=== PATIENT | female | born 1990 | race Caucasian/White ===

== ENCOUNTER 2016-03-26 15:44 | Inpatient (IN) | payer OTHER ==
[~2016-03-26] VITALS: Ht 170.2 cm; Wt 90.1 kg
[2016-04-23] VITALS (34 sets, daily range): BP systolic 101–137; BP diastolic 61–85; PULSE 77–121; TEMP 97.4–98.9
[2016-04-23] MEDS ORDERED: PRENATAL (06:51)
[2016-04-23] MEDS ORDERED: COLACE 100100 MG/CAP PO (06:51)
[2016-04-23] MEDS ORDERED: [UNRECOGNIZED DRUG - OTHER] PO (07:32)
[2016-04-23] MEDS ORDERED: OSCAL 500 TAB500 MG (07:33)
[2016-04-23] MEDS ORDERED: ZANTAC 7575 MG PO (07:33)
[2016-04-23] MEDS ORDERED: IRON325 MG PO (07:34)
[2016-04-23 08:12] LABS: BASO % 0.4 % (0.0-2.0); EOS # 0.1 (0.0-0.7); EOS % 1.2 % (0-4.0); GRAN # 6.2 (1.4-6.5); GRAN % 67.1 % (42.2-75.2); HEMOGLOBIN 12.7 g/dl (12.5-16.0); LYMPH # 1.9 (1.2-3.4); LYMPH % 20.3 % (20.0-51.0); MEAN CELL VOLUME 95 fl (80.0-100.0); MEAN CORPUSCULAR HEMOGLOBIN 33 pg (27.0-31.0); MEAN CORPUSCULAR HGB CONC 35 g/dl (33.0-37.0); MEAN PLATELET VOLUME 11.4 fl (7.4-10.4); MONO # 0.9 (0.1-0.6); MONO % 9.8 % (1.7-9.3); PLATELET COUNT 187 K/mm3 (130-400); RED BLOOD COUNT 3.86 M/mm3 (4.10-5.30); REDCELL DISTRIBUTION WIDTH-CV 13.6 % (11.5-14.5); WHITE BLOOD COUNT 9.2 K/mm3 (4.8-10.8)
[2016-04-23 08:13] LABS: HEMATOCRIT 36.6 % (37.0-47.0)
[2016-04-24 00:30] VITALS: BP 109/68; PULSE 87; TEMP 97.9
[2016-04-24 05:30] VITALS: BP 110/79; PULSE 85; TEMP 97.8
[2016-04-24 07:00] VITALS: BP 106/79; PULSE 84; TEMP 98.1
[2016-04-24] MEDS ORDERED: IBU800 M1 PO (08:58)
[2016-04-24] MEDS ORDERED: PERCOCET 325 MG1 TA2 PO (08:58)
[2016-04-24 15:44] VITALS: BP 114/68; PULSE 92; TEMP 97.8
[2016-04-24 21:00] VITALS: BP 102/75; PULSE 83; TEMP 98.2
[2016-04-25 09:20] VITALS: BP 98/73; PULSE 104; TEMP 98.2
== END 2016-04-25 13:30 | disposition home or self-care (01) | DRG 775 ==
LOC: EDSTATUS 04-13 08:33 → LDRO 04-13 13:23 → OB 04-23 07:06 → LDR 04-23 07:06 → OB 04-23 20:05 → LDRO 05-07 15:44
PROVIDERS: Obstetrics & Gynecology
PROC: 10E0XZZ Delivery of Products of Conception, External Approach (ICD-10-PCS; principal; 2016-04-23)
PROC: 0HQ9XZZ Repair Perineum Skin, External Approach (ICD-10-PCS; 2016-04-23)
PROC: 3E033VJ Introduction of Other Hormone into Peripheral Vein, Percutaneous Approach (ICD-10-PCS; 2016-04-23)
DX: O70.0 First degree perineal laceration during delivery (principal); O09.293 Supervision of pregnancy with other poor reproductive or obstetric history, third trimester; Z3A.38 38 weeks gestation of pregnancy; Z37.0 Single live birth
CPT/HCPCS: J2210; J2590; J7120

== ENCOUNTER 2018-03-02 11:52 | Outpatient (CLI) | payer OTHER ==
[~2018-03-02] VITALS: Ht 170.2 cm; Wt 85.0 kg
[2018-03-02] VITALS (8 sets, daily range): BP systolic 109–117; BP diastolic 65–77; PULSE 108–136; TEMP 98.3–99.3
[~2018-03-02 11:52] MED LIST: COLACE 100100 MG/CAP PO; IBU800 M1 PO; IRON325 MG PO; OSCAL 500 TAB500 MG; PERCOCET 325 MG1 TA2 PO; PRENATAL; ZANTAC 7575 MG PO; [UNRECOGNIZED DRUG - OTHER] PO
[2018-03-02 12:27] LABS: HEMATOCRIT 37.8 % (37.0-47.0); HEMOGLOBIN 12.6 g/dl (12.5-16.0); MEAN CELL VOLUME 99 fl (80.0-100.0); MEAN CORPUSCULAR HEMOGLOBIN 33 pg (27.0-31.0); MEAN CORPUSCULAR HGB CONC 33 g/dl (33.0-37.0); PLATELET COUNT 192 K/mm3 (130-400); RED BLOOD COUNT 3.81 M/mm3 (4.10-5.30); REDCELL DISTRIBUTION WIDTH-CV 13.6 % (11.5-14.5)
[2018-03-02] MEDS ORDERED: MAGNESIUM200 MG PO (12:27)
[2018-03-02 12:30] LABS: MUCOUS Present /lpf; PH 7 (5-8); URINE APPEARANCE Hazy; URINE BACTERIA None Seen /hpf; URINE BILIRUBIN Negative (NEGATIVE); URINE BLOOD Negative (NEGATIVE); URINE COLOR Yellow; URINE GLUCOSE Negative (NEGATIVE); URINE KETONE 2+ (NEGATIVE); URINE LEUKOCYTE ESTERASE Negative (NEGATIVE); URINE NITRATE Negative (NEGATIVE); URINE PROTEIN(semi-quant) 1+ (NEGATIVE); URINE RBC 0-2 /hpf; URINE UROBILINOGEN Negative (NEGATIVE)
[2018-03-02 12:39] LABS: ALBUMIN 3.6 gm/dL (3.5-5.0); BILIRUBIN,TOTAL 0.8 mg/dL (0.0-1.0); CALCIUM 8.5 mg/dL (8.4-10.2); CREATININE, serum 0.49 mg/dL (0.52-1.25); POTASSIUM 3.9 mmol/L (3.4-5.0); TOTAL PROTEIN 6.8 gm/dL (6.4-8.2)
[2018-03-02 12:40] LABS: COLLECTION METHOD CLEAN CATCH
[2018-03-02 12:42] LABS: BAND 23 % (0-10); LYMPHOCYTE 2 % (20.0-51.0); METAMYELOCYTE 2 % (0-0); NEUTROPHILS 72 % (42.0-75.2); PLATELET ESTIMATE NORMAL (NORMAL)
== END 2018-03-02 15:50 | disposition home or self-care (01) ==
LOC: LDRO 11:52 → LDR 11:55 → LDRO 15:50
PROVIDERS: Obstetrics & Gynecology
DX: O26.893 Other specified pregnancy related conditions, third trimester (principal); R11.2 Nausea with vomiting, unspecified; R19.7 Diarrhea, unspecified; Z3A.37 37 weeks gestation of pregnancy
CPT/HCPCS: OP; J2405; J7120

== ENCOUNTER 2018-03-06 03:56 | Inpatient (IN) | payer OTHER ==
[2018-03-06] VITALS (26 sets, daily range): BP systolic 106–156; BP diastolic 62–90; PULSE 61–102; TEMP 97.7–98.3
[~2018-03-06] VITALS: Ht 170.2 cm; Wt 83.6 kg
[~2018-03-06 03:56] MED LIST changes: +MAGNESIUM200 MG PO
[2018-03-06 05:12] LABS: BASO % 0.3 % (0.0-2.0); EOS % 0.7 % (0-4.0); GRAN # 3.4 (1.4-6.5); GRAN % 58.2 % (42.2-75.2); HEMOGLOBIN 11.5 g/dl (12.5-16.0); LYMPH # 1.8 (1.2-3.4); LYMPH % 30.1 % (20.0-51.0); MEAN CELL VOLUME 97 fl (80.0-100.0); MEAN CORPUSCULAR HEMOGLOBIN 33 pg (27.0-31.0); MEAN CORPUSCULAR HGB CONC 34 g/dl (33.0-37.0); MEAN PLATELET VOLUME 10.9 fl (7.4-10.4); MONO # 0.6 (0.1-0.6); MONO % 10.2 % (1.7-9.3); PLATELET COUNT 196 K/mm3 (130-400); RED BLOOD COUNT 3.46 M/mm3 (4.10-5.30); REDCELL DISTRIBUTION WIDTH-CV 13.5 % (11.5-14.5)
[2018-03-06 05:16] LABS: HEMATOCRIT 33.4 % (37.0-47.0)
[2018-03-07 01:54] VITALS: BP 103/69; PULSE 69; TEMP 97.6
[2018-03-07 05:12] VITALS: BP 106/69; PULSE 77; TEMP 97.9
[2018-03-07 09:30] VITALS: BP 108/67; PULSE 85; TEMP 98.2
== END 2018-03-07 15:15 | disposition home or self-care (01) | DRG 807 ==
LOC: LDRO 03:56 → LDR 04:27 → OB 04:27
PROVIDERS: Student in an Organized Health Care Education/Training Program
PROC: 10E0XZZ Delivery of Products of Conception, External Approach (ICD-10-PCS; principal; 2018-03-06)
PROC: 0HQ9XZZ Repair Perineum Skin, External Approach (ICD-10-PCS; 2018-03-06)
DX: O62.1 Secondary uterine inertia (principal); Z37.0 Single live birth; Z3A.38 38 weeks gestation of pregnancy; O70.0 First degree perineal laceration during delivery
CPT/HCPCS: J2590; J7120

== ENCOUNTER 2018-03-21 23:24 | Emergency (ER) | payer OTHER ==
[~2018-03-21] VITALS: Ht 167.6 cm; Wt 72.7 kg
[2018-03-21] MEDS ORDERED: MAGNESIUM200 MG PO (23:43)
[2018-03-21 23:47] LABS: COLLECTION METHOD CLEAN CATCH
[2018-03-22 00:43] LABS: AMORPHOUS CRYSTAL Present /uL; BUDDING YEAST Present /hpf; MUCOUS Present /lpf; PH 6 (5-8); SQUAMOUS EPITHELIAL 0-2 /hpf; URINE APPEARANCE Cloudy; URINE BACTERIA None Seen /hpf; URINE BILIRUBIN Negative (NEGATIVE); URINE BLOOD 2+ (NEGATIVE); URINE COLOR Yellow; URINE GLUCOSE Negative (NEGATIVE); URINE KETONE Negative (NEGATIVE); URINE LEUKOCYTE ESTERASE 3+ (NEGATIVE); URINE NITRATE Positive (NEGATIVE); URINE PROTEIN(semi-quant) 3+ (NEGATIVE); URINE RBC >50 /hpf; URINE UROBILINOGEN Negative (NEGATIVE); URINE WBC >50 /hpf
[2018-03-22] MEDS ORDERED: OMNICEF 300MG300 MG PO (01:08)
[2018-03-22 01:25] LABS: BASO # 0.1 (0.0-0.2); BASO % 0.5 % (0.0-2.0); EOS # 0.1 (0.0-0.7); EOS % 0.7 % (0-4.0); GRAN # 11.9 (1.4-6.5); GRAN % 78.3 % (42.2-75.2); HEMATOCRIT 39.6 % (37.0-47.0); LYMPH # 1.9 (1.2-3.4); LYMPH % 12.2 % (20.0-51.0); MEAN CELL VOLUME 99 fl (80.0-100.0); MEAN CORPUSCULAR HEMOGLOBIN 32 pg (27.0-31.0); MEAN CORPUSCULAR HGB CONC 33 g/dl (33.0-37.0); MEAN PLATELET VOLUME 10.2 fl (7.4-10.4); MONO # 1.2 (0.1-0.6); MONO % 7.8 % (1.7-9.3); PLATELET COUNT 316 K/mm3 (130-400); RED BLOOD COUNT 4.01 M/mm3 (4.10-5.30); REDCELL DISTRIBUTION WIDTH-CV 12.6 % (11.5-14.5)
[2018-03-22 01:36] LABS: ALBUMIN 4.1 gm/dL (3.5-5.0); BILIRUBIN,TOTAL 0.3 mg/dL (0.0-1.0); CALCIUM 9.1 mg/dL (8.4-10.2); CREATININE, serum 0.77 mg/dL (0.52-1.25); TOTAL PROTEIN 7.5 gm/dL (6.4-8.2)
[2018-03-22 02:57] VITALS: BP 106/69; PULSE 92; TEMP 98.2
== END 2018-03-22 03:31 | disposition home or self-care (01) ==
LOC: COL.ER 23:24
PROVIDERS: Emergency Medicine
DX: K59.00 Constipation, unspecified (principal); N12 Tubulo-interstitial nephritis, not specified as acute or chronic; N13.30 Unspecified hydronephrosis
CPT/HCPCS: J0696; J1885; J7030; Q9967

== ENCOUNTER → 2019-02-18 | Outpatient (CLI) | payer OTHER ==
[~2019-02-18] MED LIST changes: +OMNICEF 300MG300 MG PO
== END | disposition home or self-care (01) ==
LOC: COL.RAD 12:55
DX: R10.9 Unspecified abdominal pain (principal)

== ENCOUNTER → 2019-07-14 | Outpatient (CLI) | payer OTHER ==
[2019-07-14 08:03] LABS: ALBUMIN 4.7 gm/dL (3.5-5.0); BILIRUBIN,TOTAL 0.4 mg/dL (0.0-1.0); CALCIUM 9.3 mg/dL (8.4-10.2); CHOLESTEROL RISK RATIO 3.3; CREATININE, serum 0.65 (0.52-1.25); POTASSIUM 3.6 mmol/L (3.4-5.0); TOTAL PROTEIN 7.9 gm/dL (6.4-8.2)
[2019-07-14 08:05] LABS: HEMATOCRIT 38.6 % (37.0-47.0); HEMOGLOBIN 13.1 g/dl (12.5-16.0); MEAN CELL VOLUME 93 fl (80.0-100.0); MEAN CORPUSCULAR HEMOGLOBIN 32 pg (27.0-31.0); MEAN CORPUSCULAR HGB CONC 34 g/dl (33.0-37.0); MEAN PLATELET VOLUME 10.7 fl (7.4-10.4); PLATELET COUNT 245 K/mm3 (130-400); RED BLOOD COUNT 4.14 M/mm3 (4.10-5.30); REDCELL DISTRIBUTION WIDTH-CV 13.1 % (11.5-14.5)
[2019-07-14 08:33] LABS: THYROID STIMULATING HORMONE 2.51 uIU/mL (0.465-4.680)
== END ==
LOC: LDRO 06:15
PROVIDERS: Family Medicine
DX: Z00.00 Encounter for general adult medical examination without abnormal findings (principal); K59.00 Constipation, unspecified; F33.1 Major depressive disorder, recurrent, moderate

== ENCOUNTER → 2020-03-22 | Outpatient (CLI) | payer OTHER | LOC: COL.LAB 08:35 | DX: K59.00 Constipation, unspecified (principal); R10.9 Unspecified abdominal pain; R19.8 Other specified symptoms and signs involving the digestive system and abdomen ==

== ENCOUNTER → 2020-09-30 | Outpatient (CLI) | payer OTHER ==
[~2020-09-30] MED LIST changes: +ADVIL200 MG PO; +ATIVAN 1MG T1 MG/TAB PO; +FLEXERIL 1010 MG/TAB PO; +ZYRTEC 10MG10 MG PO
== END ==
LOC: COL.RAD 09:45
DX: M51.26 Other intervertebral disc displacement, lumbar region (principal); M48.061 Spinal stenosis, lumbar region without neurogenic claudication

== ENCOUNTER → 2021-01-18 | Day surgery (SDC) | payer OTHER ==
[~2021-01-18] VITALS: Ht 170.2 cm; Wt 81.1 kg
[2021-01-18 07:45] VITALS: BP 110/81; PULSE 91; TEMP 98.3
[2021-01-18 08:53] VITALS: BP 102/66; PULSE 77; TEMP 98
[2021-01-18 09:00] VITALS: BP 106/71; PULSE 70
[2021-01-18 09:15] VITALS: BP 105/69; PULSE 68
--- NOTE | 2021-01-18 09:30 | NUR ---
0852 Pt returns from endo procedure via cart and RN assist to [facility]. Pt ambulates from cart to recliner with RN assist. Monitors on and alarms set. Call light within reach. Pt care continued with this RN. Pt alert and oriented. Pt requests juice and muffin. Pt denies any pain or nausea. 0900 Pt taking food and drink well. No complications noted. 0920 Discharge instructions given to pt. All questions answered to her satisfaction. Handed to pt is discharge information. 0930 Pt transferred out of the hospital via wheelchair and this RN assist, to private vehicle driven by pt's .
[2021-01-18 11:31] VITALS: BP 94/63; PULSE 75
== END ==
LOC: SDCO 06:59
DX: K59.00 Constipation, unspecified (principal); R19.5 Other fecal abnormalities; N81.6 Rectocele; N81.10 Cystocele, unspecified; F41.9 Anxiety disorder, unspecified; Z79.899 Other long term (current) drug therapy
CPT/HCPCS: J7120

== ENCOUNTER → 2021-05-25 | Outpatient (CLI) | payer OTHER ==
[2021-05-25 11:03] LABS: BASO % 0.5 % (0.0-2.0); EOS # 0.1 K/mm3 (0.0-0.7); EOS % 1.2 % (0.0-4.0); GRAN # 3.4 K/mm3 (1.4-6.5); GRAN % 55.1 % (42.2-75.2); HEMATOCRIT 41.8 % (37.0-47.0); LYMPH # 2.2 K/mm3 (1.2-3.4); LYMPH % 35.6 % (20.0-51.0); MEAN CELL VOLUME 93 fl (80.0-100.0); MEAN CORPUSCULAR HEMOGLOBIN 31 pg (27-31); MEAN CORPUSCULAR HGB CONC 34 g/dl (33.0-37.0); MEAN PLATELET VOLUME 10.3 fl (7.4-10.4); MONO # 0.5 K/mm3 (0.1-0.6); MONO % 7.4 % (1.7-9.3); PLATELET COUNT 271 K/mm3 (130-400); RED BLOOD COUNT 4.48 M/mm3 (4.10-5.30); REDCELL DISTRIBUTION WIDTH-CV 12.9 % (11.5-14.5)
[2021-05-25 11:19] LABS: ALBUMIN 4.5 gm/dL (3.5-5.0); BILIRUBIN,TOTAL 0.8 mg/dL (0.2-1.2); CALCIUM 9.2 mg/dL (8.4-10.2); CHOLESTEROL RISK RATIO 3.5; CREATININE, serum 0.81 mg/dL (0.57-1.11); POTASSIUM 4.3 mmol/L (3.5-4.5); TOTAL PROTEIN 7.9 gm/dL (6.2-8.1)
[2021-05-25 11:39] LABS: TSH w REFLEX 2.818 uIU/mL (0.350-4.940)
== END ==
LOC: COL.LAB 10:36
PROVIDERS: Family Medicine
DX: Z00.00 Encounter for general adult medical examination without abnormal findings (principal); K59.00 Constipation, unspecified; N92.1 Excessive and frequent menstruation with irregular cycle; R25.1 Tremor, unspecified; R63.4 Abnormal weight loss

== ENCOUNTER → 2021-12-06 | Outpatient (CLI) | payer OTHER | LOC: COL.RAD 10:30 | DX: N81.6 Rectocele (principal) | CPT/HCPCS: A9575 ==